=== PATIENT | male | born 1995 | race Two or more races ===

== ENCOUNTER 2024-02-12 02:50 | Emergency (ER) | payer OTHER ==
[~2024-02-12] VITALS: Ht 170.2 cm; Wt 63.5 kg
[2024-02-12] MEDS ORDERED: MORPHINE SULFATE 4 MG/ML VIAL IV STA ×2 (03:56→07:10)
[2024-02-12] MEDS ORDERED: 0.9 % SODIUM CHLORIDE 1,000 ML IV ONE (04:00)
[2024-02-12 05:22] LABS: HEMATOCRIT 25.8 % (39.0-48.0); HEMOGLOBIN 9.1 g/dL (13-16.00); MEAN CELL VOLUME 103.4 fL (80.0-100.00); MEAN CORPUSCULAR HEMOGLOBIN 36.3 pg (27.00-32.0); MEAN CORPUSCULAR HGB CONC 35.1 g/dl (32.0-36.0); PLATELET COUNT 332 K/uL (150-450); RED CELL DISTRIBUTION WIDTH 18.7 % (11.5-14.5)
[2024-02-12 05:26] LABS: CALCIUM 8.8 mg/dL (8.5-10.1); CREATININE SERUM 1.18 mg/dL (0.70-1.30); POTASSIUM 4.28 mEq/L (3.5-5.1)
[2024-02-12 05:43] LABS: URINE APPEARANCE Clear; URINE BILIRRUBIN Negative (NEGATIVE); URINE BLOOD Trace; URINE COLOR Yellow; URINE GLUCOSE Negative (NEGATIVE); URINE LEUKOCYTE Negative; URINE NITRATE Negative
[2024-02-12 05:44] LABS: URINE RBC 5.6 uL (0.0-20.8)
[2024-02-12 05:47] LABS: URINE BACTERIA 1.2 uL (0.0-1933); URINE EPITHELIAL CELLS 0.3 uL (0.0-38.8); URINE PROTEIN 100 (NEGATIVE)
[2024-02-12 05:48] LABS: GFR 74.05
[2024-02-12] MEDS ORDERED: DOLOGESIC-DF 51 EACH PO (07:23)
== END 2024-02-12 07:39 ==
LOC: ER 02:51
PROVIDERS: General Practice
DX: D57.00 Hb-SS disease with crisis, unspecified (principal); Z88.8 Allergy status to other drugs, medicaments and biological substances